=== PATIENT | female | born 1955 | race Caucasian/White ===

== ENCOUNTER 2017-09-29 11:25 | Observation (INO) ==
[2017-09-29 12:44] LABS: Basophils % 0.4 % (0.0-0.8); Eosinophils % 0.3 % (0.00-10.9); Hematocrit 41.7 VOL% (35.7-47.0); Hemoglobin 14.4 GM/DL (12.0-16.0); Immature Granulocytes % 0.4 %; Immature Granulocytes Absolute 0.03 #; Lymphocytes # 1.7 10*3/uL (1.4-4.0); Lymphocytes % 22.3 % (21.3-54.2); Mean Corpuscular HGB Conc 34.5 GM/DL (32-36); Mean Corpuscular Hemoglobin 33 PG (27-34); Mean Corpuscular Volume 94.8 FL (87-102); Mean Platelet Volume 10.6 FL (9.6-12.0); Monocytes # 0.9 10*3/uL (0.11-0.8); Monocytes % 11.5 % (1.7-12.7); Neutrophils % 65.1 % (38.7-73.9); Platelet Count 166 T/CUMM (130-400); Red Cell Distribution Width 12.4 % (9.3-17.3); White Blood Count 7.7 T/CUMM (4-12)
[2017-09-29 13:06] LABS: Albumin 4.5 G/DL (3.4-5.0); Bilirubin,Total 0.4 MG/DL (0.2-1.0); Calcium 10.4 MG/DL (8.5-10.1); Osmolality,Calculated 274.2 MOS/KG (273-304); Potassium 4.3 MMOL/L (3.5-5.1); Total Protein 7.1 G/DL (6.4-8.3)
[2017-09-29 13:07] LABS: Troponin I Only 0.076 NG/ML (0.00-0.045)
[2017-09-29] MEDS ORDERED: MAGNESIUM SULF RIDER 2 GM in PREMIX 1 EACH IV PRN (14:08)
[2017-09-29] MEDS ORDERED: MAGNESIUM SULF RIDER 4 GM in PREMIX 1 EACH IV PRN (14:08)
[2017-09-29] MEDS ORDERED: DOCUSATE SODIUM 100 MG CAPSULE PO PRN (14:08)
[2017-09-29] MEDS ORDERED: MORPHINE 2 MG/1 ML SYRINGE IV PRN (14:08)
[2017-09-29] MEDS ORDERED: ZALEPLON 5 MG CAPSULE PO PRN (14:08)
[2017-09-29] MEDS ORDERED: ONDANSETRON 4 MG/2 ML VIAL IV PRN (14:08)
[2017-09-29] MEDS ORDERED: POTASSIUM CHLORIDE 20 MEQ TABLET PO PRN (14:11)
[2017-09-29] MEDS ORDERED: cloNIDine 0.1 MG TABLET PO PRN (14:55)
[2017-09-29] MEDS ORDERED: LORazepam 1 MG TABLET PO PRN (17:20)
[2017-09-29] MEDS ORDERED: ACETAMINOPHEN 325 MG TABLET PO PRN (17:20)
[2017-09-29] MEDS ORDERED: MAGNESIUM HYDROXIDE SUSP 30 ML UDCUP PO PRN (17:21)
[2017-09-29] MEDS ORDERED: diphenhydrAMINE CAP 25 MG CAPSULE PO PRN (17:21)
[2017-09-29] MEDS ORDERED: ENOXAPARIN 40 MG/0.4 ML SYRINGE ONE (17:59)
[2017-09-29] MEDS: NEBIVOLOL 5 MG TABLET PO SCH ×2 (20:05→20:52)
[2017-09-29] MEDS: SODIUM CHLORIDE 0.45% 1,000 ML IV SCH ×2 (20:12→23:19)
[2017-09-29] MEDS: ENOXAPARIN 40 MG/0.4 ML SYRINGE SUBCUT SCH (20:12)
[2017-09-29 23:43] LABS: Troponin I Only 0.033 NG/ML (0.00-0.045)
[2017-09-30 04:56] LABS: Basophils % 0.5 % (0.0-0.8); Eosinophils # 0.1 10*3/uL (0.0-0.87); Eosinophils % 0.9 % (0.00-10.9); Hematocrit 37.8 VOL% (35.7-47.0); Hemoglobin 12.9 GM/DL (12.0-16.0); Immature Granulocytes % 0.3 %; Immature Granulocytes Absolute 0.02 #; Lymphocytes # 1.5 10*3/uL (1.4-4.0); Lymphocytes % 23.3 % (21.3-54.2); Mean Corpuscular HGB Conc 34.1 GM/DL (32-36); Mean Corpuscular Hemoglobin 33 PG (27-34); Mean Corpuscular Volume 96.2 FL (87-102); Monocytes # 0.9 10*3/uL (0.11-0.8); Monocytes % 13.2 % (1.7-12.7); Neutrophils # 4.1 10*3/uL (1.4-7.4); Neutrophils % 61.8 % (38.7-73.9); Platelet Count 181 T/CUMM (130-400); Red Blood Count 3.93 MC/CUMM (3.8-5.5); Red Cell Distribution Width 12.3 % (9.3-17.3); White Blood Count 6.6 T/CUMM (4-12)
[2017-09-30 05:34] LABS: Albumin 3.7 G/DL (3.4-5.0); Bilirubin,Total 0.7 MG/DL (0.2-1.0); Calcium 9.5 MG/DL (8.5-10.1); Osmolality,Calculated 279.7 MOS/KG (273-304); Potassium 4.3 MMOL/L (3.5-5.1); Risk Ratio 3.08; Total Protein 5.9 G/DL (6.4-8.3); VLDL CHOLESTEROL 16.4 MG/DL
[2017-09-30] MEDS: SODIUM CHLORIDE 0.45% 1,000 ML IV SCH (07:05)
[2017-09-30] MEDS ORDERED: PANTOPRAZOLE 40 MG TABLET PO SCH (09:00)
[2017-09-30] MEDS: NEBIVOLOL 5 MG TABLET PO SCH (14:37)
[2017-09-30 16:43] VITALS: BP 186/84
[2017-09-30] MEDS: ENOXAPARIN 40 MG/0.4 ML SYRINGE SUBCUT SCH (17:23)
[2017-09-30] MEDS ORDERED: VALSARTAN 80 MG TABLET PO SCH (21:00)
[2017-09-30] MEDS ORDERED: NEBIVOLOL 5 MG TABLET PO SCH (21:00)
== END 2017-09-30 18:02 | disposition home or self-care (01) ==
LOC: N.ED 11:25 → N.EDINP 11:25 → N.TELEN 18:39
PROVIDERS: ADMIT Internal Medicine Cardiovascular Disease; ATTEND Internal Medicine Cardiovascular Disease

== ENCOUNTER 2022-06-18 08:43 | Inpatient (IN) ==
[2022-06-18] MEDS ORDERED: diphenhydrAMINE 50 MG/1 ML VIAL IV STA (09:07)
[2022-06-18 09:23] LABS: Basophils % 0.4 % (0.0-0.8); Eosinophils # 0.1 10*3/uL (0.0-0.87); Eosinophils % 0.7 % (0.00-10.9); Hematocrit 43.1 VOL% (35.7-47.0); Hemoglobin 14.4 GM/DL (12.0-16.0); Immature Granulocytes % 0.2 %; Immature Granulocytes Absolute 0.02 #; Lymphocytes # 2.3 10*3/uL (1.4-4.0); Lymphocytes % 27.5 % (21.3-54.2); Mean Corpuscular HGB Conc 33.4 GM/DL (32-36); Mean Corpuscular Volume 100.7 FL (87-102); Mean Platelet Volume 10.9 FL (9.6-12.0); Monocytes # 0.6 10*3/uL (0.11-0.8); Monocytes % 7.3 % (1.7-12.7); Neutrophils % 63.9 % (38.7-73.9); Platelet Count 163 T/CUMM (130-400); Red Blood Count 4.28 MC/CUMM (3.8-5.5); Red Cell Distribution Width 13.2 % (9.3-17.3); White Blood Count 8.2 T/CUMM (4-12)
[2022-06-18 09:42] LABS: Albumin 4.3 G/DL (3.4-5.0); Bilirubin,Total 0.7 MG/DL (0.20-1.00); Osmolality,Calculated 282.4 MOS/KG (273-304); Potassium 4.3 MMOL/L (3.5-5.1); Total Protein 7.1 G/DL (6.4-8.2)
[2022-06-18] MEDS ORDERED: fentaNYL 100 MCG/2 ML VIAL IV STA (09:49)
[2022-06-18] MEDS ORDERED: SODIUM CHLORIDE 0.9% 500 ML IV STA ×2 (10:11→11:21)
[2022-06-18] MEDS ORDERED: ALUMINUM/MAGNES/SIMETH MAX STR 30 ML UDCUP PO PRN (12:56)
[2022-06-18] MEDS ORDERED: ALBUTEROL 2.5 MG/3 ML NEB RESP TX PRN (12:56)
[2022-06-18] MEDS ORDERED: methylPREDNISolone SOD SUC 125 MG/2 ML VIAL IV STA (12:56)
[2022-06-18] MEDS ORDERED: ONDANSETRON 4 MG/2 ML VIAL IV PRN (12:56)
[2022-06-18] MEDS ORDERED: CALCIUM CARBONATE CHEW 500 MG TABLET PO PRN (12:56)
[2022-06-18] MEDS ORDERED: LACTULOSE 20 GM/30 ML UDCUP PO PRN (12:56)
[2022-06-18] MEDS ORDERED: SIMETHICONE CHEW 125 MG TABLET PO PRN (12:56)
[2022-06-18] MEDS ORDERED: FAMOTIDINE 20 MG/2 ML VIAL IV STA (13:01)
[2022-06-18] MEDS ORDERED: NITROGLYCERIN SL 0.4 MG TABLET SL PRN (13:01)
[2022-06-18] MEDS ORDERED: ASPIRIN EC 325 MG TABLET PO STA (13:02)
[2022-06-18] MEDS ORDERED: ALPRAZolam 0.5 MG TABLET PO PRN (13:03)
[2022-06-18] MEDS ORDERED: carvediloL 6.25 MG TABLET PO SCH (14:00)
[2022-06-18] MEDS ORDERED: BISOPROLOL 5 MG TABLET PO SCH (14:00)
[2022-06-18] MEDS ORDERED: ENOXAPARIN 40 MG/0.4 ML SYRINGE SUBCUT SCH (14:00)
[2022-06-18] MEDS: SODIUM CHLORIDE 0.9% 1,000 ML IV SCH (14:28)
[2022-06-18] MEDS: NITROGLYCERIN 2% OINT 1 INCH/GM PACK TOP SCH ×2 (14:43→21:48)
[2022-06-18] MEDS: ACETAMINOPHEN 325 MG TABLET PO PRN (17:28)
[2022-06-18] MEDS: buPROPion 75 MG TABLET PO SCH (20:44)
[2022-06-18] MEDS: ENOXAPARIN 80 MG/0.8 ML SYRINGE SUBCUT SCH (20:44)
[2022-06-18] MEDS: cloNIDine 0.1 MG TABLET PO SCH (20:45)
[2022-06-19] MEDS: NITROGLYCERIN 2% OINT 1 INCH/GM PACK TOP SCH ×2 (01:23→08:56)
[2022-06-19 05:08] LABS: Basophils % 0.1 % (0.0-0.8); Hematocrit 40.2 VOL% (35.7-47.0); Hemoglobin 13.3 GM/DL (12.0-16.0); Immature Granulocytes % 0.3 %; Immature Granulocytes Absolute 0.02 #; Lymphocytes # 0.7 10*3/uL (1.4-4.0); Lymphocytes % 8.4 % (21.3-54.2); Mean Corpuscular HGB Conc 33.1 GM/DL (32-36); Mean Corpuscular Volume 101.3 FL (87-102); Mean Platelet Volume 11.1 FL (9.6-12.0); Monocytes # 0.1 10*3/uL (0.11-0.8); Monocytes % 1.5 % (1.7-12.7); Neutrophils % 89.7 % (38.7-73.9); Platelet Count 153 T/CUMM (130-400); Red Blood Count 3.97 MC/CUMM (3.8-5.5); Red Cell Distribution Width 12.9 % (9.3-17.3); White Blood Count 7.8 T/CUMM (4-12)
[2022-06-19 05:38] LABS: Calcium 10.3 MG/DL (8.5-10.1); Osmolality,Calculated 287.3 MOS/KG (273-304); Potassium 4.8 MMOL/L (3.5-5.1); Risk Ratio 1.97; Thyroid Stimulating Hormone 0.509 uIU/ml (0.358-3.74); VLDL Cholesterol 10.2 MG/DL
[2022-06-19] MEDS ORDERED: MAGNESIUM SULF RIDER 2 GM/50 ML PREMIX IV ONE (08:12)
[2022-06-19] MEDS: ASPIRIN EC 81 MG TABLET PO SCH (08:55)
[2022-06-19] MEDS: PANTOPRAZOLE 40 MG TABLET PO SCH (08:55)
[2022-06-19] MEDS: cloNIDine 0.1 MG TABLET PO SCH ×2 (08:55→20:32)
[2022-06-19] MEDS: buPROPion 75 MG TABLET PO SCH ×2 (08:55→20:32)
[2022-06-19] MEDS: ENOXAPARIN 80 MG/0.8 ML SYRINGE SUBCUT SCH ×2 (08:57→20:32)
[2022-06-19] MEDS: ISOSORBIDE MONONITRATE 30 MG TABLET PO SCH (09:46)
[2022-06-19] MEDS: SODIUM CHLORIDE 0.9% 1,000 ML IV SCH (09:47)
[2022-06-19] MEDS: DOXAZOSIN 1 MG TABLET PO SCH (09:47)
[2022-06-19] MEDS: POLYETHYLENE GLYCOL POWDER 17 GM PACK PO SCH (16:40)
[2022-06-19] MEDS: ROSUVASTATIN 20 MG TABLET PO SCH (20:32)
[2022-06-20 04:43] LABS: Basophils % 0.3 % (0.0-0.8); Eosinophils # 0.1 10*3/uL (0.0-0.87); Eosinophils % 0.8 % (0.00-10.9); Hemoglobin 11.1 GM/DL (12.0-16.0); Immature Granulocytes % 0.4 %; Immature Granulocytes Absolute 0.03 #; Lymphocytes # 1.7 10*3/uL (1.4-4.0); Lymphocytes % 21.3 % (21.3-54.2); Mean Corpuscular HGB Conc 31.7 GM/DL (32-36); Mean Corpuscular Volume 104.8 FL (87-102); Mean Platelet Volume 10.8 FL (9.6-12.0); Monocytes # 0.7 10*3/uL (0.11-0.8); Monocytes % 8.5 % (1.7-12.7); Neutrophils % 68.7 % (38.7-73.9); Platelet Count 134 T/CUMM (130-400); Red Blood Count 3.34 MC/CUMM (3.8-5.5); Red Cell Distribution Width 13.3 % (9.3-17.3)
[2022-06-20 05:03] LABS: Calcium 9.5 MG/DL (8.5-10.1); Potassium 4.2 MMOL/L (3.5-5.1)
[2022-06-20 05:04] LABS: Calcium 9.5 MG/DL (8.5-10.1); Osmolality,Calculated 290.1 MOS/KG (273-304); Potassium 4.4 MMOL/L (3.5-5.1)
[2022-06-20 05:08] LABS: Platelet Estimate Adequate
[2022-06-20] MEDS: SODIUM CHLORIDE 0.9% 1,000 ML IV SCH ×2 (06:30→17:48)
[2022-06-20] MEDS: ISOSORBIDE MONONITRATE 30 MG TABLET PO SCH (09:13)
[2022-06-20] MEDS: DOXAZOSIN 1 MG TABLET PO SCH (09:13)
[2022-06-20] MEDS: ASPIRIN EC 81 MG TABLET PO SCH (09:14)
[2022-06-20] MEDS: PANTOPRAZOLE 40 MG TABLET PO SCH (09:14)
[2022-06-20] MEDS: cloNIDine 0.1 MG TABLET PO SCH (09:14)
[2022-06-20] MEDS: buPROPion 75 MG TABLET PO SCH ×2 (09:14→21:20)
[2022-06-20] MEDS: ENOXAPARIN 80 MG/0.8 ML SYRINGE SUBCUT SCH ×2 (09:15→21:20)
[2022-06-20] MEDS: POLYETHYLENE GLYCOL POWDER 17 GM PACK PO SCH (09:15)
[2022-06-20] MEDS: ACETAMINOPHEN 325 MG TABLET PO PRN ×2 (09:17→21:20)
[2022-06-20] MEDS: ROSUVASTATIN 20 MG TABLET PO SCH (21:20)
[2022-06-21] MEDS: SODIUM CHLORIDE 0.9% 1,000 ML IV SCH ×2 (03:41→23:23)
[2022-06-21 05:03] LABS: Basophils % 0.2 % (0.0-0.8); Eosinophils # 0.1 10*3/uL (0.0-0.87); Eosinophils % 2.2 % (0.00-10.9); Hematocrit 35.4 VOL% (35.7-47.0); Hemoglobin 11.2 GM/DL (12.0-16.0); Immature Granulocytes % 0.2 %; Immature Granulocytes Absolute 0.01 #; Lymphocytes # 1.3 10*3/uL (1.4-4.0); Lymphocytes % 25.7 % (21.3-54.2); Mean Corpuscular HGB Conc 31.6 GM/DL (32-36); Mean Corpuscular Volume 106.6 FL (87-102); Monocytes # 0.6 10*3/uL (0.11-0.8); Monocytes % 11.2 % (1.7-12.7); Neutrophils % 60.5 % (38.7-73.9); Platelet Count 122 T/CUMM (130-400); Red Blood Count 3.32 MC/CUMM (3.8-5.5); Red Cell Distribution Width 13.2 % (9.3-17.3); White Blood Count 4.9 T/CUMM (4-12)
[2022-06-21 05:27] LABS: Platelet Estimate Adequate
[2022-06-21 05:43] LABS: Calcium 9.2 MG/DL (8.5-10.1); Osmolality,Calculated 289.7 MOS/KG (273-304); Potassium 4.4 MMOL/L (3.5-5.1)
[2022-06-21] MEDS ORDERED: IBUPROFEN 600 MG TABLET PO ONE (06:52)
[2022-06-21] MEDS: buPROPion 75 MG TABLET PO SCH ×2 (09:05→21:37)
[2022-06-21] MEDS: DOXAZOSIN 1 MG TABLET PO SCH ×2 (09:05→21:35)
[2022-06-21] MEDS: cloNIDine 0.1 MG TABLET PO SCH ×2 (09:06→21:38)
[2022-06-21] MEDS: ASPIRIN EC 81 MG TABLET PO SCH (09:07)
[2022-06-21] MEDS: PANTOPRAZOLE 40 MG TABLET PO SCH (09:07)
[2022-06-21] MEDS: ENOXAPARIN 80 MG/0.8 ML SYRINGE SUBCUT SCH ×2 (09:08→21:34)
[2022-06-21] MEDS: POLYETHYLENE GLYCOL POWDER 17 GM PACK PO SCH (09:10)
[2022-06-21] MEDS ORDERED: cloNIDine 0.1 MG TABLET PO ONE (09:54)
[2022-06-21] MEDS: ALPRAZolam 0.5 MG TABLET PO SCH ×2 (10:05→21:38)
[2022-06-21] MEDS: FLUTICASONE 50 MCG NASAL SPRAY 16 GM BOTTLE BOTH NARES SCH ×2 (13:37→22:24)
[2022-06-21] MEDS: SODIUM CHLORIDE 0.65% NASAL SPRAY 45 ML BOTTLE BOTH NARES SCH ×2 (13:43→22:22)
[2022-06-21] MEDS: VALSARTAN 80 MG TABLET PO SCH ×2 (16:59→21:38)
[2022-06-21] MEDS ORDERED: CYCLOBENZAPRINE 10 MG TABLET PO PRN (20:32)
[2022-06-21] MEDS: ACETAMINOPHEN 325 MG TABLET PO PRN (21:35)
[2022-06-21] MEDS: ROSUVASTATIN 20 MG TABLET PO SCH (21:38)
[2022-06-22 04:54] LABS: Basophils % 0.3 % (0.0-0.8); Eosinophils # 0.1 10*3/uL (0.0-0.87); Eosinophils % 1.3 % (0.00-10.9); Hematocrit 35.5 VOL% (35.7-47.0); Hemoglobin 11.5 GM/DL (12.0-16.0); Immature Granulocytes % 0.3 %; Immature Granulocytes Absolute 0.02 #; Lymphocytes # 1.1 10*3/uL (1.4-4.0); Lymphocytes % 17.4 % (21.3-54.2); Mean Corpuscular HGB Conc 32.4 GM/DL (32-36); Mean Corpuscular Volume 103.5 FL (87-102); Mean Platelet Volume 11.3 FL (9.6-12.0); Monocytes # 0.6 10*3/uL (0.11-0.8); Monocytes % 8.7 % (1.7-12.7); Platelet Count 126 T/CUMM (130-400); Red Blood Count 3.43 MC/CUMM (3.8-5.5); Red Cell Distribution Width 12.6 % (9.3-17.3); White Blood Count 6.3 T/CUMM (4-12)
[2022-06-22 05:15] LABS: Calcium 9.4 MG/DL (8.5-10.1); Osmolality,Calculated 280.3 MOS/KG (273-304); Potassium 4.7 MMOL/L (3.5-5.1)
[2022-06-22] MEDS ORDERED: MAGNESIUM SULF RIDER 2 GM/50 ML PREMIX IV ONE (07:38)
[2022-06-22] MEDS: SODIUM CHLORIDE 0.9% 1,000 ML IV SCH (07:42)
[2022-06-22] MEDS ORDERED: diphenhydrAMINE CAP 25 MG CAPSULE PO ONE (08:00)
[2022-06-22] MEDS ORDERED: DIAZEPAM 5 MG TABLET PO ONE (08:00)
[2022-06-22] MEDS: DOXAZOSIN 1 MG TABLET PO SCH (08:04)
[2022-06-22] MEDS: VALSARTAN 80 MG TABLET PO SCH (08:04)
[2022-06-22] MEDS: ASPIRIN EC 81 MG TABLET PO SCH (08:04)
[2022-06-22] MEDS ORDERED: HEPARIN/NACL 0.9% 2 UNITS/ML 2,000 UNIT/1,000 ML BAG IV ONE (08:11)
[2022-06-22] MEDS ORDERED: fentaNYL 100 MCG/2 ML VIAL ONE (08:33)
[2022-06-22] MEDS ORDERED: NITROGLYCERIN DRIP 50 MG/250 ML BOTTLE IV ONE (08:33)
[2022-06-22] MEDS ORDERED: MIDAZOLAM 2 MG/2 ML VIAL ONE (08:33)
[2022-06-22] MEDS ORDERED: VERAPAMIL 5 MG/2 ML VIAL ONE (08:33)
[2022-06-22] MEDS ORDERED: ENOXAPARIN 30 MG/0.3 ML SYRINGE ONE (08:43)
[2022-06-22] MEDS ORDERED: HYDROmorphone 1 MG/1 ML SYRINGE ONE (08:59)
[2022-06-22] MEDS ORDERED: cloNIDine 0.1 MG TABLET PO SCH (09:00)
[2022-06-22] MEDS: ENOXAPARIN 80 MG/0.8 ML SYRINGE SUBCUT SCH (10:02)
[2022-06-22] MEDS: POLYETHYLENE GLYCOL POWDER 17 GM PACK PO SCH (10:03)
[2022-06-22] MEDS: PANTOPRAZOLE 40 MG TABLET PO SCH (10:07)
[2022-06-22] MEDS: buPROPion 75 MG TABLET PO SCH (10:07)
[2022-06-22] MEDS: FLUTICASONE 50 MCG NASAL SPRAY 16 GM BOTTLE BOTH NARES SCH ×2 (10:07→10:14)
[2022-06-22] MEDS: SODIUM CHLORIDE 0.65% NASAL SPRAY 45 ML BOTTLE BOTH NARES SCH (10:10)
[2022-06-22] MEDS: ALPRAZolam 0.5 MG TABLET PO SCH (10:13)
[2022-06-22] MEDS ORDERED: IBUPROFEN 800 MG TABLET PO ONE (12:01)
[2022-06-22] MEDS ORDERED: cloNIDine 0.1 MG TABLET PO ONE (12:02)
[2022-06-22 12:52] VITALS: BP 146/84
== END 2022-06-22 15:25 | disposition home or self-care (01) | DRG 287 ==
LOC: N.EDINP 08:43 → N.ED 08:43 → N.EDINP 16:40 → N.TELEN 17:10 → SUATTDRO 06-19 11:12
PROVIDERS: ADMIT Hospitalist; ATTEND Internal Medicine
PROC: CLCCHCL (ICD-10-PCS; 2022-06-22 09:15)